=== PATIENT | male | born 1950 | race Caucasian/White ===

== ENCOUNTER 2018-08-28 15:49 | Emergency (ER) | payer OTHER, MEDICARE ==
[~2018-08-28] VITALS: Ht 185.4 cm; Wt 82.0 kg
[2018-08-28] MEDS ORDERED: SITA25TA PO (17:51)
[2018-08-28] MEDS ORDERED: LISI-167 PO (17:51)
[2018-08-28] MEDS ORDERED: METF500T17 PO (17:51)
[2018-08-28] MEDS ORDERED: OMEP-110 PO (17:51)
[2018-08-28] MEDS ORDERED: OXCA150T3 PO (17:51)
[2018-08-28] MEDS ORDERED: LIDOCAINE 2%, 20ML SQ ONE (18:00)
[2018-08-28] MEDS ORDERED: BUPIVACAINE/PF 0.5% INFIL ONE (18:00)
[2018-08-28] MEDS ORDERED: BACITRACIN ZINC OINT 500U/GM, 0.9 GM ONE (19:09)
[2018-08-28 20:17] VITALS: BP 122/81
== END 2018-08-28 20:30 | disposition home or self-care (01) ==
LOC: ED 20:24
DX: S61.211A Laceration without foreign body of left index finger without damage to nail, initial encounter (principal); I10 Essential (primary) hypertension; E78.5 Hyperlipidemia, unspecified; E11.9 Type 2 diabetes mellitus without complications; W26.0XXA Contact with knife, initial encounter; Y93.89 Activity, other specified; Y92.828 Other wilderness area as the place of occurrence of the external cause; Y99.8 Other external cause status
CPT/HCPCS: 12041; 99284; J3490